=== PATIENT | male | born 1940 | race Two or more races ===

== ENCOUNTER → 2017-09-21 | Emergency (ER) | payer OTHER ==
[~2017-09-21] VITALS: Ht 180.3 cm; Wt 78.0 kg
[~2017-09-21] MED LIST: ALTACE10 MG; ALTACE10 MG PO; ANTIVERT25 M1 PO; ASA81 MG; FORTAMET500 MG PO; GLUCOPHAGE XR500 MG; HYDRALAZINE HCL50 MG; HYZAAR 50-12.1 UDTAB; ISOSORBIDE DINI30 MG PO; LASIX20 MG PO; LIPITOR40 MG; LIPITOR40 MG PO; METFORMIN HCL500 M1; PLAVIX75 MG; PROTONIX40 MG PO; TOPROL XL100 MG
== END | disposition left against medical advice (07) ==
LOC: ER 13:57
DX: Z53.20 Procedure and treatment not carried out because of patient's decision for unspecified reasons (principal)

== ENCOUNTER 2018-01-27 10:58 | Outpatient (CLI) | payer OTHER | END 2018-01-27 11:07 | disposition home or self-care (01) | LOC: NUCLEAR 10:58 | DX: N18.2 Chronic kidney disease, stage 2 (mild) (principal) | CPT/HCPCS: 78708; A9539; J1940 ==

== ENCOUNTER 2018-02-20 13:05 | Outpatient (CLI) | payer OTHER | END 2018-02-20 13:08 | disposition home or self-care (01) | LOC: LAB 13:05 | DX: D51.1 Vitamin B12 deficiency anemia due to selective vitamin B12 malabsorption with proteinuria (principal); D51.3 Other dietary vitamin B12 deficiency anemia; I10 Essential (primary) hypertension; E11.9 Type 2 diabetes mellitus without complications; I73.89 Other specified peripheral vascular diseases; D50.8 Other iron deficiency anemias; D51.8 Other vitamin B12 deficiency anemias; E03.8 Other specified hypothyroidism; D51.0 Vitamin B12 deficiency anemia due to intrinsic factor deficiency; R97.0 Elevated carcinoembryonic antigen [CEA]; R19.5 Other fecal abnormalities ==

== ENCOUNTER 2018-06-04 09:06 | Outpatient (CLI) | payer OTHER | END 2018-06-04 09:18 | disposition home or self-care (01) | LOC: TOM 09:06 | DX: D12.5 Benign neoplasm of sigmoid colon (principal); D12.4 Benign neoplasm of descending colon ==

== ENCOUNTER 2018-07-18 10:52 | Outpatient (CLI) | payer OTHER | END 2018-07-18 11:08 | disposition home or self-care (01) | LOC: LAB 10:52 | DX: E11.9 Type 2 diabetes mellitus without complications (principal) ==

== ENCOUNTER 2018-07-18 12:13 | Outpatient (CLI) | payer OTHER | END 2018-07-18 12:16 | disposition home or self-care (01) | LOC: SONOGRAMA 12:13 | DX: K80.80 Other cholelithiasis without obstruction (principal); I71.4 Abdominal aortic aneurysm, without rupture ==

== ENCOUNTER 2018-08-21 07:54 | Outpatient (CLI) | payer OTHER | END 2018-08-21 08:03 | disposition home or self-care (01) | LOC: RX STUDY 07:54 | DX: R19.5 Other fecal abnormalities (principal) ==

== ENCOUNTER 2018-09-25 17:58 | Emergency (ER) | payer OTHER ==
[~2018-09-25] VITALS: Ht 180.3 cm; Wt 83.9 kg
== END 2018-09-26 14:53 | disposition home or self-care (01) ==
LOC: ER 17:58 → CPU-OBS 18:18 → ER 09-26 14:53
DX: I48.0 Paroxysmal atrial fibrillation (principal); I47.1 Supraventricular tachycardia; I16.1 Hypertensive emergency; I10 Essential (primary) hypertension; R07.89 Other chest pain; E87.6 Hypokalemia

== ENCOUNTER 2018-12-09 11:18 | Outpatient (CLI) | payer OTHER | END 2018-12-09 12:28 | disposition home or self-care (01) | LOC: LAB 11:18 | DX: I11.9 Hypertensive heart disease without heart failure (principal); E78.2 Mixed hyperlipidemia ==